=== PATIENT | female | born 1965 | race African-American/Black ===

== ENCOUNTER 2019-07-25 01:37 | Inpatient (IN) ==
[2019-07-25] MEDS ORDERED: ONDANSETRON 4 MG/2 ML VIAL IV STA (02:01)
[2019-07-25] MEDS ORDERED: NITROGLYCERIN 2% OINT 1 INCH/GM PACK TOP STA (02:01)
[2019-07-25] MEDS ORDERED: hydrALAZINE 20 MG/1 ML VIAL IV STA (02:01)
[2019-07-25] MEDS ORDERED: MORPHINE 4 MG/1 ML VIAL IV STA (02:01)
[2019-07-25] MEDS ORDERED: methylPREDNISolone SOD SUC 125 MG/2 ML VIAL IV STA (02:01)
[2019-07-25] MEDS ORDERED: ASPIRIN 325 MG TABLET PO STA (02:01)
[2019-07-25] MEDS ORDERED: FUROSEMIDE 100 MG/10 ML VIAL IV STA (02:01)
[2019-07-25 02:13] LABS: Basophils # 0.1 10*3/uL (0.0-0.2); Basophils % 0.5 % (0.0-0.8); Eosinophils # 0.3 10*3/uL (0.0-0.87); Hematocrit 43.9 VOL% (35.7-47.0); Hemoglobin 13.8 GM/DL (12.0-16.0); Immature Granulocytes % 0.4 %; Immature Granulocytes Absolute 0.04 #; Lymphocytes # 5.1 10*3/uL (1.4-4.0); Lymphocytes % 55.4 % (21.3-54.2); Mean Corpuscular HGB Conc 31.4 GM/DL (32-36); Mean Corpuscular Volume 85.6 FL (87-102); Mean Platelet Volume 10.4 FL (9.6-12.0); Monocytes % 6.3 % (1.7-12.7); Neutrophils % 34.4 % (38.7-73.9); Platelet Count 182 T/CUMM (130-400); Red Blood Count 5.13 MC/CUMM (3.8-5.5); Red Cell Distribution Width 14.6 % (9.3-17.3); White Blood Count 9.3 T/CUMM (4-12)
[2019-07-25 02:26] LABS: PT Patient Result 10.9 SECS (9.6-12.2)
[2019-07-25 02:30] LABS: Alanine Aminotransferase 31 U/L (13-56); Albumin 3.5 G/DL (3.4-5.0); Alkaline Phosphatase 102 U/L (45-117); Aspartate Amino Transferase 24 U/L (0-37); Bilirubin,Total < 0.39 MG/DL (0.2-1.0); Blood Urea Nitrogen 20 MG/DL (7-18); Calcium 8.6 MG/DL (8.5-10.1); Estimated Glom Filtration Rate 76 ML/MIN; Glucose 230 MG/DL (74-106)
[2019-07-25] MEDS ORDERED: ALBUTEROL NEB SOLN 5 MG/ML 20 ML/BOTTLE RESP TX SCH (02:30)
[2019-07-25 02:36] LABS: Eosinophils 3 % (0-10); Lymphocytes 54 % (20-55); Segmented Neutrophils 36 % (50-85)
[2019-07-25 02:38] LABS: Ovalocytes 1+; Platelet Estimate Normal; Polychromasia Few
[2019-07-25 02:39] LABS: Reactive Lymphocytes 1+; Total Cells Counted 100
[2019-07-25] MEDS ORDERED: ENOXAPARIN 100 MG/ML SYRINGE SUBCUT STA (03:09)
[2019-07-25 03:15] LABS: Apearance,Urine CLEAR (Clear); Bacteria,Urine Occasional /HPF (Few); Bilirubin,Urine Negative (Negative); Blood, Urine Negative (Negative); Glucose,Urine (UA) Negative (Negative); Ketones,Urine Negative (Negative); Mucus,Urine Occasional /LPF (Occasional); Nitrite,Urine Negative (Negative); Protein,Urine Negative; RBC,Urine <1 /HPF (0-4); Urine Color Colorless (Yellow); Urine Specific Gravity 1.005 (1.001-1.035); Urine Urobilinogen < 2.0 EU/DL (0.2-1.0); WBC,Urine <1 /HPF (0-6)
[2019-07-25 03:31] LABS: Barbiturates Screen,Urine Negative (Negative); Benzodiazepines Screen,Urine Negative (Negative); Cannabinoid Screen,Urine Negative (Negative); Opiate Screen,Urine Positive (Negative); Phencyclidine Screen,Urine Negative (Negative)
[2019-07-25 03:34] LABS: ABG Base Excess -1.2 MMOL/L (-2.5-2.5); ABG HCO3 23.3 MMOL/L (20-26); ABG Oxygen Saturation 93.1 % (95-100); ABG PCO2 35.1 MM HG (35-48); ABG PH 7.418 (7.35-7.45); ABG PO2 60.2 MM HG (80-95); ABG TCO2 19.6 MMOL/L (23-27); Allen Test Positive; Pt O2 Delivery Device Other
[2019-07-25] MEDS ORDERED: DEXTROSE 10% 250 ML BAG IV PRN (04:39)
[2019-07-25] MEDS ORDERED: ALBUTEROL 2.5 MG/3 ML NEB RESP TX PRN (04:39)
[2019-07-25] MEDS ORDERED: BISACODYL 5 MG TABLET PO PRN (04:39)
[2019-07-25] MEDS ORDERED: guaiFENesin/DM ER 600-30 MG TABLET PO PRN (04:39)
[2019-07-25] MEDS ORDERED: ONDANSETRON 4 MG/2 ML VIAL IV PRN (04:39)
[2019-07-25] MEDS ORDERED: ACETAMINOPHEN 325 MG TABLET PO PRN (04:39)
[2019-07-25] MEDS ORDERED: hydrALAZINE 20 MG/1 ML VIAL IV PRN (04:39)
[2019-07-25] MEDS ORDERED: diphenhydrAMINE CAP 25 MG CAPSULE PO PRN (04:39)
[2019-07-25] MEDS ORDERED: GLUCAGON 1 MG VIAL IM PRN (04:39)
[2019-07-25] MEDS ORDERED: MORPHINE 4 MG/1 ML VIAL IV PRN (04:39)
[2019-07-25] MEDS ORDERED: NICOTINE 21 MG/24 HR PATCH TRANSDERM PRN (04:39)
[2019-07-25 05:44] LABS: Risk Ratio 8.19; VLDL CHOLESTEROL 31.4 MG/DL
[2019-07-25 06:03] LABS: ABG Base Excess 0.7 MMOL/L (-2.5-2.5); ABG HCO3 24.9 MMOL/L (20-26); ABG Oxygen Saturation 94.7 % (95-100); ABG PCO2 37.8 MM HG (35-48); ABG PH 7.426 (7.35-7.45); ABG TCO2 21.5 MMOL/L (23-27); Allen Test Positive; Pt O2 Delivery Device Other
[2019-07-25] MEDS ORDERED: FUROSEMIDE 20 MG/2 ML VIAL IV SCH (08:00)
[2019-07-25] MEDS: MEROPENEM 500 MG in SODIUM CHLORIDE 0.9% 100 ML IV SCH ×3 (08:37→20:44)
[2019-07-25] MEDS: AZITHROMYCIN INJ 500 MG in SODIUM CHLORIDE 0.9% 250 ML IV SCH (08:38)
[2019-07-25] MEDS: INSULIN REGULAR 100 UNIT/ML SUBCUT SCH ×4 (08:38→20:46)
[2019-07-25] MEDS: NICOTINE 21 MG/24 HR PATCH TRANSDERM SCH ×2 (08:39→08:56)
[2019-07-25] MEDS: VANCOMYCIN INJ 1,250 MG in SODIUM CHLORIDE 0.9% 250 ML IV SCH ×2 (08:40→21:31)
[2019-07-25] MEDS ORDERED: LISINOPRIL 20 MG TABLET PO SCH (10:30)
[2019-07-25] MEDS: METOPROLOL SUCCINATE XL 100 MG TABLET PO SCH (12:02)
[2019-07-25] MEDS: LISINOPRIL 20 MG TABLET PO SCH (12:02)
[2019-07-25] MEDS: SPIRONOLACTONE 25 MG TABLET PO SCH (12:03)
[2019-07-25] MEDS: ALBUTEROL/IPRATROPIUM 3 ML NEB RESP TX SCH ×2 (13:40→19:39)
[2019-07-25] MEDS: methylPREDNISolone SOD SUC 40 MG/1 ML VIAL IV SCH (13:40)
[2019-07-25] MEDS: ENOXAPARIN 80 MG/0.8 ML SYRINGE SUBCUT SCH (14:03)
[2019-07-25] MEDS: FUROSEMIDE 40 MG/4 ML VIAL IV SCH (15:04)
[2019-07-25] MEDS ORDERED: POTASSIUM CHLORIDE 20 MEQ TABLET PO PRN (17:03)
[2019-07-26] MEDS: ALBUTEROL/IPRATROPIUM 3 ML NEB RESP TX SCH ×3 (00:51→14:08)
[2019-07-26] MEDS: methylPREDNISolone SOD SUC 40 MG/1 ML VIAL IV SCH (02:55)
[2019-07-26] MEDS: MEROPENEM 500 MG in SODIUM CHLORIDE 0.9% 100 ML IV SCH ×2 (02:56→09:15)
[2019-07-26] MEDS: ENOXAPARIN 80 MG/0.8 ML SYRINGE SUBCUT SCH ×2 (02:56→16:04)
[2019-07-26] MEDS: AZITHROMYCIN INJ 500 MG in SODIUM CHLORIDE 0.9% 250 ML IV SCH (05:42)
[2019-07-26 06:43] LABS: Basophils % 0.1 % (0.0-0.8); Hematocrit 31.2 VOL% (35.7-47.0); Hemoglobin 9.7 GM/DL (12.0-16.0); Immature Granulocytes % 0.4 %; Immature Granulocytes Absolute 0.04 #; Lymphocytes # 1.1 10*3/uL (1.4-4.0); Mean Corpuscular HGB Conc 31.1 GM/DL (32-36); Mean Corpuscular Volume 87.6 FL (87-102); Mean Platelet Volume 10.3 FL (9.6-12.0); Monocytes % 4.5 % (1.7-12.7); Platelet Count 214 T/CUMM (130-400); Red Blood Count 3.56 MC/CUMM (3.8-5.5); Red Cell Distribution Width 14.6 % (9.3-17.3); White Blood Count 9.5 T/CUMM (4-12)
[2019-07-26 07:11] LABS: Albumin 2.1 G/DL (3.4-5.0); Bilirubin,Total 0.9 MG/DL (0.2-1.0); Calcium 6.6 MG/DL (8.5-10.1); Total Protein 4.6 G/DL (6.4-8.3)
[2019-07-26 07:15] LABS: Calcium 6.5 MG/DL (8.5-10.1); Osmolality,Calculated 305.6 MOS/KG (273-304)
[2019-07-26 08:25] LABS: Calcium 9.4 MG/DL (8.5-10.1); Osmolality,Calculated 287.4 MOS/KG (273-304)
[2019-07-26] MEDS ORDERED: cephALEXin 500 MG CAPSULE PO SCH (09:00)
[2019-07-26] MEDS ORDERED: amLODIPine 10 MG TABLET PO SCH (09:00)
[2019-07-26] MEDS ORDERED: PANTOPRAZOLE 40 MG TABLET PO SCH (09:00)
[2019-07-26] MEDS: INSULIN REGULAR 100 UNIT/ML SUBCUT SCH ×3 (09:06→16:05)
[2019-07-26] MEDS: SPIRONOLACTONE 25 MG TABLET PO SCH (09:07)
[2019-07-26] MEDS: FUROSEMIDE 40 MG/4 ML VIAL IV SCH ×2 (09:07→16:05)
[2019-07-26] MEDS: NICOTINE 21 MG/24 HR PATCH TRANSDERM SCH (09:07)
[2019-07-26] MEDS: LISINOPRIL 20 MG TABLET PO SCH (09:08)
[2019-07-26] MEDS: METOPROLOL SUCCINATE XL 100 MG TABLET PO SCH (09:08)
[2019-07-26] MEDS: VANCOMYCIN INJ 1,250 MG in SODIUM CHLORIDE 0.9% 250 ML IV SCH (09:15)
[2019-07-26 16:29] VITALS: BP 130/80
== END 2019-07-26 17:12 | disposition home or self-care (01) | DRG 194 ==
LOC: N.ED 01:37 → SUATTDRO 04:39 → N.EDINP 04:39 → N.TELES 05:43
PROVIDERS: ADMIT Internal Medicine; ATTEND Internal Medicine

== ENCOUNTER 2019-08-24 01:51 | Inpatient (IN) ==
[2019-08-24] MEDS ORDERED: CALCIUM GLUCONATE 1,000 MG/10 ML VIAL IV ONE (02:27)
[2019-08-24] MEDS ORDERED: DOPamine 800 MG/250 ML PREMIX IV PRN ×2 (02:41→04:54)
[2019-08-24] MEDS ORDERED: HEPARIN 5,000 UNIT/1 ML VIAL ONE (02:43)
[2019-08-24] MEDS ORDERED: ENOXAPARIN 100 MG/ML SYRINGE SUBCUT ONE (02:46)
[2019-08-24] MEDS ORDERED: ENOXAPARIN 100 MG/ML SYRINGE SUBCUT STA (02:47)
[2019-08-24] MEDS ORDERED: NOREPINEPHRINE 8 MG in SODIUM CHLORIDE 0.9% 242 ML IV PRN (03:01)
[2019-08-24] MEDS ORDERED: NOREPINEPHRINE 4 MG/4 ML VIAL IV ONE (03:02)
[2019-08-24 03:11] LABS: ABG Base Excess -27.4 MMOL/L (-2.5-2.5); ABG HCO3 5.9 MMOL/L (20-26); ABG PCO2 58.9 MM HG (35-48); ABG TCO2 8.9 MMOL/L (23-27); Allen Test Positive; Pt O2 Delivery Device Ventilator
[2019-08-24 03:15] LABS: ABG PH 6.752 (7.35-7.45)
[2019-08-24 03:32] LABS: Basophils % 0.6 % (0.0-0.8); Eosinophils # 0.1 10*3/uL (0.0-0.87); Eosinophils % 1.5 % (0.00-10.9); Hematocrit 38.7 VOL% (35.7-47.0); Hemoglobin 11.1 GM/DL (12.0-16.0); Immature Granulocytes % 1.9 %; Immature Granulocytes Absolute 0.13 #; Lymphocytes # 5.3 10*3/uL (1.4-4.0); Lymphocytes % 77.6 % (21.3-54.2); Mean Corpuscular HGB Conc 28.7 GM/DL (32-36); Mean Corpuscular Volume 95.3 FL (87-102); Mean Platelet Volume 10.8 FL (9.6-12.0); Monocytes % 5.3 % (1.7-12.7); NRBC # 0.04 10*3/uL; Neutrophils % 13.1 % (38.7-73.9); Platelet Count 101 T/CUMM (130-400); Red Blood Count 4.06 MC/CUMM (3.8-5.5); Red Cell Distribution Width 14.7 % (9.3-17.3); White Blood Count 6.8 T/CUMM (4-12)
[2019-08-24 04:01] LABS: Alanine Aminotransferase 131 U/L (13-56); Alkaline Phosphatase 85 U/L (45-117); Aspartate Amino Transferase 131 U/L (0-37); Bilirubin,Total < 0.39 MG/DL (0.2-1.0); Blood Urea Nitrogen 14 MG/DL (7-18); Calcium 9.5 MG/DL (8.5-10.1); Estimated Glom Filtration Rate 67 ML/MIN; Glucose 341 MG/DL (74-106); Osmolality,Calculated 309.1 MOS/KG (273-304); Total Protein 4.4 G/DL (6.4-8.3)
[2019-08-24 04:02] LABS: Atypical Lymphocytes Few; Eosinophils 1 % (0-10); Lymphocytes 76 % (20-55); Platelet Estimate Decreased; Segmented Neutrophils 16 % (50-85); Total Cells Counted 100
[2019-08-24] MEDS ORDERED: SODIUM BICARBONATE 50 MEQ/50 ML VIAL IV ONE (04:55)
[2019-08-24] MEDS ORDERED: ACETAMINOPHEN 325 MG TABLET PO PRN (04:57)
[2019-08-24] MEDS ORDERED: ONDANSETRON 4 MG/2 ML VIAL IV PRN (04:57)
[2019-08-24 06:14] LABS: Allen Test Positive; Pt O2 Delivery Device Ventilator
[2019-08-24 06:24] LABS: ABG Base Excess -15.1 MMOL/L (-2.5-2.5); ABG HCO3 13.2 MMOL/L (20-26); ABG Oxygen Saturation 96.4 % (95-100); ABG PCO2 41.7 MM HG (35-48); ABG TCO2 12.8 MMOL/L (23-27)
[2019-08-24 06:28] LABS: ABG PH 7.138 (7.35-7.45)
[2019-08-24] MEDS ORDERED: LORazepam 2 MG/1 ML VIAL IV PRN (08:50)
[2019-08-24] MEDS ORDERED: fentaNYL 100 MCG/2 ML VIAL IV PRN (08:52)
[2019-08-24] MEDS ORDERED: LORazepam INJ 40 MG in DEXTROSE 5% 30 ML IV PRN (08:57)
[2019-08-24] MEDS ORDERED: MEPERIDINE 25 MG/1 ML VIAL IV PRN (09:00)
[2019-08-24] MEDS ORDERED: PANTOPRAZOLE 40 MG TABLET PO SCH (09:00)
[2019-08-24] MEDS ORDERED: LEVOFLOXACIN INJ 750 MG in PREMIX 1 EACH IV SCH (09:00)
[2019-08-24] MEDS: CISATRACURIUM 200 MG in SODIUM CHLORIDE 0.9% 180 ML IV SCH (09:40)
[2019-08-24] MEDS: fentaNYL INJ 1,250 MCG in SODIUM CHLORIDE 0.9% 225 ML IV PRN ×2 (09:40→22:23)
[2019-08-24] MEDS ORDERED: PHENYLEPHRINE DRIP 40 MG/250 ML PREMIX IV PRN (10:17)
[2019-08-24] MEDS ORDERED: VANCOMYCIN INJ 1,250 MG in SODIUM CHLORIDE 0.9% 250 ML IV SCH (10:30)
[2019-08-24] MEDS ORDERED: INFLUENZA VIRUS VACCINE 0.5 ML SYRINGE IM ONE (10:43)
[2019-08-24 11:13] LABS: Basophils # 0.1 10*3/uL (0.0-0.2); Basophils % 0.3 % (0.0-0.8); Eosinophils % 0.1 % (0.00-10.9); Hematocrit 46.8 VOL% (35.7-47.0); Hemoglobin 14.6 GM/DL (12.0-16.0); Immature Granulocytes % 2.1 %; Immature Granulocytes Absolute 0.54 #; Lymphocytes # 1.8 10*3/uL (1.4-4.0); Lymphocytes % 6.8 % (21.3-54.2); Mean Corpuscular HGB Conc 31.2 GM/DL (32-36); Mean Platelet Volume 9.8 FL (9.6-12.0); Monocytes % 8.3 % (1.7-12.7); NRBC # 0.05 10*3/uL; Neutrophils % 82.4 % (38.7-73.9); Platelet Count 230 T/CUMM (130-400); Red Blood Count 5.38 MC/CUMM (3.8-5.5); Red Cell Distribution Width 15.3 % (9.3-17.3); White Blood Count 25.7 T/CUMM (4-12)
[2019-08-24] MEDS: metroNIDAZOLE INJ 500 MG in PREMIX 1 EACH IV SCH ×2 (11:22→20:15)
[2019-08-24 11:25] LABS: ABG Base Excess -9.7 MMOL/L (-2.5-2.5); ABG HCO3 16.9 MMOL/L (20-26); ABG Oxygen Saturation 95.8 % (95-100); ABG PCO2 40.6 MM HG (35-48); ABG PH 7.243 (7.35-7.45); ABG PO2 89.2 MM HG (80-95); ABG TCO2 15.3 MMOL/L (23-27)
[2019-08-24] MEDS: PANTOPRAZOLE 40 MG VIAL IV SCH (11:38)
[2019-08-24] MEDS: methylPREDNISolone SOD SUC 40 MG/1 ML VIAL IV SCH ×2 (11:38→17:55)
[2019-08-24 11:47] LABS: INR 1.3; PT Patient Result 14.6 SECS (9.6-12.2); Partial Thromboplastin Time 34.7 SECS (20.8-36.0)
[2019-08-24 11:52] LABS: Band Neutrophils 3 % (0-10); Hypochromasia 1+; Lymphocytes 11 % (20-55); Nucleated Red Blood Cells 1 (0-5); Platelet Estimate Adequate; Segmented Neutrophils 79 % (50-85); Total Cells Counted 100
[2019-08-24 11:55] LABS: Osmolality,Calculated 308.1 MOS/KG (273-304)
[2019-08-24 12:06] LABS: CKMB % 3.6 %
[2019-08-24 12:10] LABS: Troponin I 52.1 NG/ML (0.00-0.045)
[2019-08-24] MEDS: POTASSIUM CHLORIDE RIDER 20 MEQ in PREMIX 1 EACH IV PRN ×3 (12:16→21:23)
[2019-08-24] MEDS: INSULIN REGULAR 100 UNIT/ML IV SCH ×3 (12:16→20:15)
[2019-08-24] MEDS: NOREPINEPHRINE 16 MG in SODIUM CHLORIDE 0.9% 234 ML IV PRN ×2 (13:37→21:36)
[2019-08-24] MEDS ORDERED: PHENYLEPHRINE INJ 160 MG in SODIUM CHLORIDE 0.9% 234 ML IV PRN (13:45)
[2019-08-24] MEDS ORDERED: ENOXAPARIN 100 MG/ML SYRINGE SUBCUT SCH (15:00)
[2019-08-24] MEDS ORDERED: ENOXAPARIN 30 MG/0.3 ML SYRINGE SUBCUT SCH (15:00)
[2019-08-24] MEDS: MINERAL OIL/PETROLATUM OPH OINT 3.5 GM TUBE BOTH EYES SCH ×2 (15:24→21:24)
[2019-08-24] MEDS: POTASSIUM CHLORIDE RIDER 10 MEQ in PREMIX 1 EACH IV PRN ×2 (16:20→23:22)
[2019-08-24 16:55] LABS: Basophils # 0.1 10*3/uL (0.0-0.2); Basophils % 0.3 % (0.0-0.8); Hemoglobin 14.8 GM/DL (12.0-16.0); Immature Granulocytes % 1.9 %; Immature Granulocytes Absolute 0.52 #; Lymphocytes # 1.6 10*3/uL (1.4-4.0); Lymphocytes % 5.8 % (21.3-54.2); Mean Corpuscular HGB Conc 31.5 GM/DL (32-36); Mean Corpuscular Volume 86.7 FL (87-102); Mean Platelet Volume 9.4 FL (9.6-12.0); Monocytes % 7.5 % (1.7-12.7); NRBC # 0.04 10*3/uL; Neutrophils % 84.5 % (38.7-73.9); Platelet Count 227 T/CUMM (130-400); Red Blood Count 5.42 MC/CUMM (3.8-5.5); Red Cell Distribution Width 15.4 % (9.3-17.3); White Blood Count 27.4 T/CUMM (4-12)
[2019-08-24] MEDS ORDERED: PNEUMOCOCCAL VACCINE (13 VALENT) 0.5 ML SYRINGE IM ONE (17:05)
[2019-08-24 17:06] LABS: INR 1.4; PT Patient Result 15.4 SECS (9.6-12.2); Partial Thromboplastin Time 35.8 SECS (20.8-36.0)
[2019-08-24 17:17] LABS: Band Neutrophils 10 % (0-10); Burr Cells Few; Lymphocytes 3 % (20-55); Nucleated Red Blood Cells 2 (0-5); Segmented Neutrophils 81 % (50-85); Total Cells Counted 100
[2019-08-24 17:18] LABS: Platelet Estimate Adequate
[2019-08-24 17:30] LABS: CKMB % 3.7 %; Calcium 9.1 MG/DL (8.5-10.1); Osmolality,Calculated 302.6 MOS/KG (273-304)
[2019-08-24 17:35] LABS: Troponin I 57.8 NG/ML (0.00-0.045)
[2019-08-24] MEDS ORDERED: SODIUM CHLORIDE 0.9% 500 ML IV ONE (22:10)
[2019-08-24 23:14] LABS: Basophils % 0.2 % (0.0-0.8); Hematocrit 42.6 VOL% (35.7-47.0); Hemoglobin 13.2 GM/DL (12.0-16.0); Immature Granulocytes % 1.2 %; Immature Granulocytes Absolute 0.25 #; Lymphocytes # 1.5 10*3/uL (1.4-4.0); Lymphocytes % 7.1 % (21.3-54.2); Mean Corpuscular Volume 86.6 FL (87-102); Mean Platelet Volume 9.6 FL (9.6-12.0); Monocytes % 7.5 % (1.7-12.7); NRBC # 0.07 10*3/uL; Platelet Count 188 T/CUMM (130-400); Red Blood Count 4.92 MC/CUMM (3.8-5.5); Red Cell Distribution Width 15.6 % (9.3-17.3); White Blood Count 20.6 T/CUMM (4-12)
[2019-08-24 23:35] LABS: INR 1.3; PT Patient Result 14.5 SECS (9.6-12.2); Partial Thromboplastin Time 34.3 SECS (20.8-36.0)
[2019-08-24 23:44] LABS: CKMB % 3.5 %; Calcium 8.6 MG/DL (8.5-10.1); Osmolality,Calculated 307.1 MOS/KG (273-304)
[2019-08-24 23:46] LABS: Troponin I 29.4 NG/ML (0.00-0.045)
[2019-08-25] LABS: Anisocytosis Slight; Band Neutrophils 2 % (0-10); Lymphocytes 14 % (20-55); Microcytosis Slight; Platelet Estimate Normal; Polychromasia Slight; Segmented Neutrophils 80 % (50-85); Total Cells Counted 100
[2019-08-25 00:01] LABS: Burr Cells 1+; Ovalocytes Slight
[2019-08-25] MEDS: INSULIN REGULAR 100 UNIT/ML IV SCH ×6 (00:03→20:14)
[2019-08-25] MEDS: SODIUM CHLORIDE 0.45% 1,000 ML IV SCH ×2 (00:35→09:50)
[2019-08-25] MEDS: methylPREDNISolone SOD SUC 40 MG/1 ML VIAL IV SCH ×3 (02:49→18:13)
[2019-08-25] MEDS ORDERED: ENOXAPARIN 30 MG/0.3 ML SYRINGE SUBCUT SCH (03:00)
[2019-08-25] MEDS: metroNIDAZOLE INJ 500 MG in PREMIX 1 EACH IV SCH ×3 (04:31→20:15)
[2019-08-25 04:59] LABS: Basophils % 0.2 % (0.0-0.8); Hematocrit 40.8 VOL% (35.7-47.0); Hemoglobin 13.2 GM/DL (12.0-16.0); Immature Granulocytes % 1.7 %; Lymphocytes # 1.9 10*3/uL (1.4-4.0); Lymphocytes % 11.3 % (21.3-54.2); Mean Corpuscular HGB Conc 32.4 GM/DL (32-36); Mean Platelet Volume 10.7 FL (9.6-12.0); Monocytes % 8.7 % (1.7-12.7); NRBC # 0.05 10*3/uL; Neutrophils % 78.1 % (38.7-73.9); Platelet Count 191 T/CUMM (130-400); Red Blood Count 4.86 MC/CUMM (3.8-5.5); Red Cell Distribution Width 15.4 % (9.3-17.3); White Blood Count 17.2 T/CUMM (4-12)
[2019-08-25 05:02] LABS: INR 1.2; PT Patient Result 13.1 SECS (9.6-12.2); Partial Thromboplastin Time 34.3 SECS (20.8-36.0)
[2019-08-25 05:28] LABS: Band Neutrophils 8 % (0-10); Hypochromasia 1+; Lymphocytes 6 % (20-55); Metamyelocytes 2 %; Microcytosis Slight; Segmented Neutrophils 79 % (50-85); Target Cells Slight; Total Cells Counted 100
[2019-08-25 05:29] LABS: Platelet Estimate Adequate
[2019-08-25 05:37] LABS: CKMB % 3.6 %; Calcium 8.8 MG/DL (8.5-10.1); Osmolality,Calculated 305.3 MOS/KG (273-304)
[2019-08-25 05:38] LABS: ABG Base Excess -7.7 MMOL/L (-2.5-2.5); ABG HCO3 18.3 MMOL/L (20-26); ABG Oxygen Saturation 98.3 % (95-100); ABG PCO2 27.8 MM HG (35-48); ABG PH 7.374 (7.35-7.45); ABG PO2 93.9 MM HG (80-95); ABG TCO2 14.2 MMOL/L (23-27)
[2019-08-25 05:38] LABS: Troponin I 22.4 NG/ML (0.00-0.045)
[2019-08-25] MEDS ORDERED: SODIUM BICARB INJ 100 MEQ in SODIUM CHLORIDE 0.45% 1,000 ML IV SCH (06:00)
[2019-08-25] MEDS: PANTOPRAZOLE 40 MG VIAL IV SCH (09:42)
[2019-08-25] MEDS: fentaNYL INJ 1,250 MCG in SODIUM CHLORIDE 0.9% 225 ML IV PRN ×2 (09:46→20:55)
[2019-08-25] MEDS: MINERAL OIL/PETROLATUM OPH OINT 3.5 GM TUBE BOTH EYES SCH ×3 (09:47→20:15)
[2019-08-25] MEDS: SODIUM BICARB INJ 100 MEQ in DEXTROSE 5% 1,000 ML IV SCH ×2 (10:54→22:03)
[2019-08-25 14:35] LABS: Basophils % 0.2 % (0.0-0.8); Hematocrit 34.6 VOL% (35.7-47.0); Hemoglobin 11.4 GM/DL (12.0-16.0); Immature Granulocytes % 0.7 %; Immature Granulocytes Absolute 0.11 #; Lymphocytes # 1.7 10*3/uL (1.4-4.0); Lymphocytes % 10.2 % (21.3-54.2); Mean Corpuscular HGB Conc 32.9 GM/DL (32-36); Mean Corpuscular Volume 82.2 FL (87-102); Mean Platelet Volume 10.3 FL (9.6-12.0); Monocytes % 6.6 % (1.7-12.7); NRBC # 0.03 10*3/uL; Neutrophils % 82.3 % (38.7-73.9); Platelet Count 145 T/CUMM (130-400); Red Blood Count 4.21 MC/CUMM (3.8-5.5); Red Cell Distribution Width 15.2 % (9.3-17.3); White Blood Count 16.6 T/CUMM (4-12)
[2019-08-25 15:03] LABS: Calcium 8.4 MG/DL (8.5-10.1)
[2019-08-25 15:08] LABS: INR 1.2; PT Patient Result 12.8 SECS (9.6-12.2); Partial Thromboplastin Time 34.4 SECS (20.8-36.0)
[2019-08-25] MEDS: CISATRACURIUM 200 MG in SODIUM CHLORIDE 0.9% 180 ML IV SCH (15:49)
[2019-08-25] MEDS: NOREPINEPHRINE 16 MG in SODIUM CHLORIDE 0.9% 234 ML IV PRN (16:40)
[2019-08-25 17:06] LABS: Anisocytosis 1+; Band Neutrophils 6 % (0-10); Burr Cells 1+; Lymphocytes 12 % (20-55); Macrocytosis 1+; Platelet Estimate Normal; Reactive Lymphocytes Slight; Segmented Neutrophils 80 % (50-85); Total Cells Counted 100
[2019-08-25 17:45] LABS: Basophils % 0.2 % (0.0-0.8); Hematocrit 32.4 VOL% (35.7-47.0); Hemoglobin 10.7 GM/DL (12.0-16.0); Immature Granulocytes % 0.6 %; Lymphocytes # 1.5 10*3/uL (1.4-4.0); Lymphocytes % 9.1 % (21.3-54.2); Mean Corpuscular Volume 81.6 FL (87-102); Mean Platelet Volume 10.6 FL (9.6-12.0); Monocytes % 7.5 % (1.7-12.7); NRBC # 0.03 10*3/uL; Neutrophils % 82.6 % (38.7-73.9); Platelet Count 128 T/CUMM (130-400); Red Blood Count 3.97 MC/CUMM (3.8-5.5); Red Cell Distribution Width 15.3 % (9.3-17.3); White Blood Count 16.4 T/CUMM (4-12)
[2019-08-25 18:00] LABS: Calcium 8.2 MG/DL (8.5-10.1); INR 1.2; PT Patient Result 12.8 SECS (9.6-12.2); Partial Thromboplastin Time 36.6 SECS (20.8-36.0)
[2019-08-25 19:09] LABS: Acanthocytes 1+; Anisocytosis Slight; Lymphocytes 17 % (20-55); Macrocytosis Slight; Platelet Estimate Normal; Segmented Neutrophils 79 % (50-85); Total Cells Counted 100
[2019-08-25 23:23] LABS: Basophils % 0.2 % (0.0-0.8); Hematocrit 29.4 VOL% (35.7-47.0); Hemoglobin 9.6 GM/DL (12.0-16.0); Immature Granulocytes % 0.9 %; Immature Granulocytes Absolute 0.17 #; Lymphocytes # 1.6 10*3/uL (1.4-4.0); Lymphocytes % 8.9 % (21.3-54.2); Mean Corpuscular HGB Conc 32.7 GM/DL (32-36); Mean Corpuscular Volume 81.9 FL (87-102); Monocytes % 8.3 % (1.7-12.7); NRBC # 0.05 10*3/uL; Neutrophils % 81.7 % (38.7-73.9); Platelet Count 121 T/CUMM (130-400); Red Blood Count 3.59 MC/CUMM (3.8-5.5); Red Cell Distribution Width 15.4 % (9.3-17.3); White Blood Count 18.2 T/CUMM (4-12)
[2019-08-25 23:31] LABS: INR 1.2; PT Patient Result 12.5 SECS (9.6-12.2); Partial Thromboplastin Time 35.2 SECS (20.8-36.0)
[2019-08-25 23:41] LABS: Osmolality,Calculated 301.8 MOS/KG (273-304)
[2019-08-25 23:50] LABS: Band Neutrophils 10 % (0-10); Lymphocytes 12 % (20-55); Metamyelocytes 5 %; Myelocytes 2 %; Segmented Neutrophils 62 % (50-85); Total Cells Counted 100
[2019-08-25 23:55] LABS: Hypochromasia Slight; Platelet Estimate Adequate
[2019-08-26] MEDS: INSULIN REGULAR 100 UNIT/ML IV SCH (00:16)
[2019-08-26 00:56] LABS: ABG Base Excess -2.2 MMOL/L (-2.5-2.5); ABG HCO3 22.6 MMOL/L (20-26); ABG Oxygen Saturation 99.4 % (95-100); ABG PCO2 29.7 MM HG (35-48); ABG PH 7.455 (7.35-7.45)
[2019-08-26 01:08] LABS: INR 1.1; PT Patient Result 12.3 SECS (9.6-12.2)
[2019-08-26 01:25] LABS: Alanine Aminotransferase 201 U/L (13-56); Alkaline Phosphatase 71 U/L (45-117); Aspartate Amino Transferase 227 U/L (0-37); Bilirubin,Total < 0.39 MG/DL (0.2-1.0); Blood Urea Nitrogen 46 MG/DL (7-18); Calcium 8.1 MG/DL (8.5-10.1); Estimated Glom Filtration Rate 17 ML/MIN; Glucose 192 MG/DL (74-106); Osmolality,Calculated 299.1 MOS/KG (273-304); Total Protein 4.7 G/DL (6.4-8.3)
[2019-08-26 01:30] LABS: Apearance,Urine CLOUDY (Clear); Blood, Urine Large mg/dL (Negative); Glucose,Urine (UA) 50 mg/dL (Negative); Ketones,Urine 5 mg/dL (Negative); Mucus,Urine Occasional /LPF (Occasional); Nitrite,Urine Negative (Negative); Protein,Urine 100 MG/DL; RBC,Urine 79 /HPF (0-4); Renal Epithelial Cells,Urine Occasional /HPF (<1); Squamous Epithelial Cell,Urine Occasional /HPF (0-10); Urine Color Amber (Yellow); Urine Specific Gravity 1.021 (1.001-1.035); Urine Urobilinogen < 2.0 EU/DL (0.2-1.0); WBC,Urine 6 /HPF (0-6)
[2019-08-26 01:31] LABS: Bilirubin,Urine Small mg/dL (Negative)
[2019-08-26 01:32] LABS: CKMB % 3.4 %
[2019-08-26 01:44] LABS: Troponin I 10.9 NG/ML (0.00-0.045)
[2019-08-26] MEDS ORDERED: INSULIN REGULAR 100 UNIT/ML IV SCH (02:00)
[2019-08-26] MEDS ORDERED: POTASSIUM CHLORIDE RIDER 20 MEQ in PREMIX 1 EACH IV PRN (02:17)
[2019-08-26] MEDS ORDERED: POTASSIUM CHLORIDE RIDER 10 MEQ in PREMIX 1 EACH IV PRN (02:19)
[2019-08-26] MEDS ORDERED: MAGNESIUM SULF RIDER 4 GM in PREMIX 1 EACH IV PRN (02:20)
[2019-08-26] MEDS ORDERED: MAGNESIUM SULF RIDER 2 GM in PREMIX 1 EACH IV PRN (02:20)
[2019-08-26] MEDS: methylPREDNISolone SOD SUC 40 MG/1 ML VIAL IV SCH ×3 (02:42→18:19)
[2019-08-26 04:39] LABS: Basophils % 0.2 % (0.0-0.8); Hematocrit 26.2 VOL% (35.7-47.0); Hemoglobin 8.8 GM/DL (12.0-16.0); Immature Granulocytes % 1.6 %; Lymphocytes # 1.2 10*3/uL (1.4-4.0); Lymphocytes % 6.5 % (21.3-54.2); Mean Corpuscular HGB Conc 33.6 GM/DL (32-36); Mean Corpuscular Volume 82.4 FL (87-102); Mean Platelet Volume 11.3 FL (9.6-12.0); Monocytes % 8.1 % (1.7-12.7); NRBC # 0.06 10*3/uL; Neutrophils % 83.6 % (38.7-73.9); Platelet Count 106 T/CUMM (130-400); Red Blood Count 3.18 MC/CUMM (3.8-5.5); Red Cell Distribution Width 15.4 % (9.3-17.3); White Blood Count 18.2 T/CUMM (4-12)
[2019-08-26 04:40] LABS: ABG Base Excess -2.4 MMOL/L (-2.5-2.5); ABG HCO3 22.4 MMOL/L (20-26); ABG Oxygen Saturation 98.8 % (95-100); ABG PCO2 31.4 MM HG (35-48); ABG PH 7.437 (7.35-7.45); ABG TCO2 19.5 MMOL/L (23-27)
[2019-08-26] MEDS: INSULIN REGULAR 100 UNIT/ML SUBCUT SCH ×3 (04:42→13:18)
[2019-08-26] MEDS: metroNIDAZOLE INJ 500 MG in PREMIX 1 EACH IV SCH ×3 (04:43→20:07)
[2019-08-26 04:49] LABS: INR 1.1; Partial Thromboplastin Time 35.5 SECS (20.8-36.0)
[2019-08-26 04:55] LABS: Alanine Aminotransferase 185 U/L (13-56); Albumin 1.8 G/DL (3.4-5.0); Alkaline Phosphatase 72 U/L (45-117); Aspartate Amino Transferase 211 U/L (0-37); Bilirubin,Total < 0.39 MG/DL (0.2-1.0); Blood Urea Nitrogen 47 MG/DL (7-18); Calcium 7.9 MG/DL (8.5-10.1); Estimated Glom Filtration Rate 15 ML/MIN; Glucose 199 MG/DL (74-106); Total Protein 4.3 G/DL (6.4-8.3)
[2019-08-26 05:04] LABS: Band Neutrophils 9 % (0-10); Lymphocytes 8 % (20-55); Metamyelocytes 2 %; Microcytosis Slight; Nucleated Red Blood Cells 2 (0-5); Segmented Neutrophils 76 % (50-85); Total Cells Counted 100
[2019-08-26 05:05] LABS: Hypochromasia 1+; Platelet Estimate Decreased
[2019-08-26] MEDS: SODIUM BICARB INJ 100 MEQ in DEXTROSE 5% 1,000 ML IV SCH ×2 (08:23→19:58)
[2019-08-26] MEDS: PANTOPRAZOLE 40 MG VIAL IV SCH (08:36)
[2019-08-26] MEDS: MINERAL OIL/PETROLATUM OPH OINT 3.5 GM TUBE BOTH EYES SCH ×3 (08:37→20:07)
[2019-08-26] MEDS: CISATRACURIUM 200 MG in SODIUM CHLORIDE 0.9% 180 ML IV SCH (08:49)
[2019-08-26] MEDS ORDERED: LEVOFLOXACIN INJ 750 MG in PREMIX 1 EACH IV SCH (09:00)
[2019-08-26] MEDS: NOREPINEPHRINE 16 MG in SODIUM CHLORIDE 0.9% 234 ML IV PRN (13:19)
[2019-08-26 13:57] LABS: Basophils % 0.2 % (0.0-0.8); Hematocrit 23.2 VOL% (35.7-47.0); Hemoglobin 7.5 GM/DL (12.0-16.0); Immature Granulocytes % 8.1 %; Immature Granulocytes Absolute 1.41 #; Lymphocytes # 1.1 10*3/uL (1.4-4.0); Lymphocytes % 6.2 % (21.3-54.2); Mean Corpuscular HGB Conc 32.3 GM/DL (32-36); Mean Corpuscular Volume 82.9 FL (87-102); Mean Platelet Volume 11.4 FL (9.6-12.0); Monocytes % 8.3 % (1.7-12.7); NRBC # 0.04 10*3/uL; Neutrophils % 77.2 % (38.7-73.9); Platelet Count 93 T/CUMM (130-400); Red Cell Distribution Width 15.7 % (9.3-17.3); White Blood Count 17.4 T/CUMM (4-12)
[2019-08-26 14:05] LABS: INR 1.1; PT Patient Result 11.8 SECS (9.6-12.2); Partial Thromboplastin Time 34.2 SECS (20.8-36.0)
[2019-08-26 14:27] LABS: Calcium 7.5 MG/DL (8.5-10.1)
[2019-08-26 14:54] LABS: Band Neutrophils 14 % (0-10); Lymphocytes 4 % (20-55); Metamyelocytes 8 %; Platelet Estimate Decreased; Segmented Neutrophils 69 % (50-85); Total Cells Counted 100
[2019-08-27 00:07] VITALS: BP 107/62
== END 2019-08-26 20:38 | disposition expired | DRG 196 ==
LOC: N.ED 01:51 → SUATTDRO 04:57 → N.EDINP 04:57 → N.CC 06:52
PROVIDERS: ADMIT Internal Medicine; ATTEND Internal Medicine